=== PATIENT | male | born 1995 ===

== ENCOUNTER 2020-04-02 21:49 | Emergency (ER) | payer SELFPAY ==
[2020-04-02 22:41] LABS: Absolute Lymphocytes (CBC) 2.6 K/uL (0.7-4.9); Basophils % 0.8 % (0-1.3); Hematocrit 40.4 % (39.6-49.0); Lymphocytes % 33.7 % (15.3-44.8); MPV 8.3 fL (7.6-11.3); RBC Red Blood Cell Count 4.92 M/uL (4.33-5.43)
[2020-04-02 22:55] LABS: BUN Blood Urea Nitrogen 17 mg/dL (7-18); Bicarbonate 26 mmol/L (21-32); Glucose Level 96 mg/dL (74-106); Potassium 3.4 mmol/L (3.5-5.1); Sodium Level 141 mmol/L (136-145)
[2020-04-02] MEDS ORDERED: TETANUS & DIPHTHERIA TOX,ADULT 0.5 ML VIAL ONE (23:10)
[2020-04-02] MEDS ORDERED: FENTANYL CITR 100 MCG/2 ML ONE (23:10)
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
[2020-04-03 02:12] VITALS: O2SAT 100
[2020-04-03 02:14] VITALS: BP 132/86; TEMP 98
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
== END 2020-04-03 01:18 | disposition home or self-care (01) ==
LOC: ER 21:49 → EDBD 21:49 → ER 04-03 01:18
DX: M25.522 Pain in left elbow (principal); V49.50XA Passenger injured in collision with unspecified motor vehicles in traffic accident, initial encounter; Z23 Encounter for immunization
CPT/HCPCS: 36415; 70450; 71260; 72125; 74177; 80048; 85025; 86850; 86900; 86901; 90471; 90714; 96374; 99284; J3010; Q9967